=== PATIENT | male | born 1945 | race Caucasian/White ===

== ENCOUNTER 2016-12-05 10:46 | Outpatient (CLI) | payer MEDICARE, BC | END 2016-12-05 10:47 | disposition home or self-care (01) | LOC: DI 10:46 | PROVIDERS: ATTEND Family Medicine | DX: Z53.9 Procedure and treatment not carried out, unspecified reason (principal) ==

== ENCOUNTER 2016-12-10 11:45 | Outpatient (CLI) | payer MEDICARE, BC ==
--- NOTE | 2016-12-10 16:53 | CT Report ---
CT SINUSES WITHOUT CONTRAST: 12/10/2016 CLINICAL INDICATION: Rhinosinusitis, cough. Axial CT images of the paranasal sinuses were obtained without contrast, following which sagittal and coronal reconstructions were performed. In accordance with CT protocol optimization, one or more of the following dose reduction techniques w ere utilized for this exam: automated exposure control, adjustment of mA and/or KV based on patient size, or use of iterative reconstructive technique. There is mild mucosal thickening in the maxillary sinuses and frontal sinuses bilaterally, with patch y opacification of ethmoid air cells. The sphenoid sinus is clear. There is soft tissue occlusion o f the ostiomeatal units bilaterally. There is leftward spurring of the nasal septum, but the nasal s eptum is midline. No osseous destruction is seen. The visualized intraorbital contents are unremark able. IMPRESSION: CHRONIC FRONTAL, MAXILLARY, AND ETHMOID SINUS DISEASE. :9 JOB #: [id number] EXT JOB #:[id number]
== END 2016-12-10 11:46 | disposition home or self-care (01) ==
LOC: DI 11:45
PROVIDERS: ATTEND Family Medicine
DX: J32.1 Chronic frontal sinusitis (principal); J32.0 Chronic maxillary sinusitis; J32.2 Chronic ethmoidal sinusitis
CPT/HCPCS: 70486

== ENCOUNTER 2017-05-14 08:00 | Outpatient (CLI) | payer MEDICARE, BC ==
[2017-05-14 13:08] LABS: BASOPHILS % (AUTO) 0.7 %; EOSINOPHILS # (AUTO) 0.5 10^3/uL (0.0-0.7); EOSINOPHILS % (AUTO) 10.3 %; HCT - HEMATOCRIT 46.3 % (42.0-52.0); HGB - HEMOGLOBIN 15.8 g/dL (14.0-18.0); LYMPHOCYTES # (AUTO) 1.5 10^3/uL (1.5-3.5); LYMPHOCYTES % (AUTO) 29.2 %; MEAN CORPUSCULAR HEMOGLOBIN 31.3 pg (27.0-31.0); MEAN CORPUSCULAR HGB CONC 34.2 g/dL (32.0-36.0); MEAN CORPUSCULAR VOLUME 91.6 fL (80.0-94.0); MEAN PLATELET VOLUME 8.5 fL (7.4-11.4); MONOCYTES # (AUTO) 0.4 10^3/uL (0.0-1.0); NEUTROPHILS # (AUTO) 2.7 10^3/uL (1.5-6.6); NEUTROPHILS % (AUTO) 51.8 %; RED BLOOD COUNT 5.05 10^6/uL (4.70-6.10); RED CELL DISTRIBUTION WIDTH 13.6 % (12.0-15.0); UNCORRECTED WHITE BLOOD COUNT 5.1 x10^3/uL; WHITE BLOOD COUNT 5.1 x10^3/uL (4.8-10.8)
[2017-05-14 13:30] LABS: ALBUMIN/GLOBULIN RATIO 1.5 (1.0-2.2); BILIRUBIN,TOTAL 0.8 mg/dL (0.2-1.0); BUN - BLOOD UREA NITROGEN 19 mg/dL (6-20); CALCIUM 9.1 mg/dL (8.5-10.3); CARBON DIOXIDE - CO2 25 mmol/L (21-32); CHLORIDE 105 mmol/L (101-111); CHOLESTEROL 115 mg/dL; CREATININE 1.1 mg/dL (0.6-1.2); GFR - MDRD 66 (>89); GLUCOSE 99 mg/dL (70-100); HDL CHOLESTEROL 23 mg/dL; LDL/HDL RATIO 2.7 (<3.6); POTASSIUM 4.3 mmol/L (3.5-5.0); SODIUM 137 mmol/L (135-145); TOTAL PROTEIN 7.2 g/dL (6.7-8.2); TRIGLYCERIDES 152 mg/dL; VLDL CHOLESTEROL 30 mg/dL
== END 2017-05-14 08:01 | disposition home or self-care (01) ==
LOC: LAB.WCP 08:00
PROVIDERS: ATTEND Family Medicine
DX: I10 Essential (primary) hypertension (principal); N40.1 Benign prostatic hyperplasia with lower urinary tract symptoms; E78.5 Hyperlipidemia, unspecified; Z12.5 Encounter for screening for malignant neoplasm of prostate
CPT/HCPCS: 36415; 80053; 80061; 84443; 85025; G0103; 84153

== ENCOUNTER 2017-06-26 13:20 | Outpatient (CLI) | payer MEDICARE, BC ==
[2017-06-26] MEDS ORDERED: ALBUTEROL NEB 2.5 MG/3 ML INH ONE (14:00)
== END 2017-06-26 13:21 | disposition home or self-care (01) ==
LOC: RT 13:20
PROVIDERS: ATTEND Family Medicine
DX: J45.998 Other asthma (principal)
CPT/HCPCS: 94060; 94729; J7613

== ENCOUNTER 2017-11-24 08:00 | Outpatient (CLI) | payer MEDICARE, BC ==
[2017-11-24 19:00] LABS: PSA FREE 0.36 ng/mL (0.16-2.81)
[2017-11-24 19:01] LABS: PSA TOTAL 2.31 ng/mL (0.000-2.000)
== END 2017-11-24 08:01 ==
LOC: LAB.WCP 08:00
PROVIDERS: ATTEND Family Medicine
DX: R97.20 Elevated prostate specific antigen [PSA] (principal)
CPT/HCPCS: 36415; 84154

== ENCOUNTER 2018-06-09 12:47 | Emergency (ER) | payer MEDICARE, BC ==
[2018-06-09 13:29] LABS: BASOPHILS % (AUTO) 0.7 %; EOSINOPHILS # (AUTO) 0.4 10^3/uL (0.0-0.7); EOSINOPHILS % (AUTO) 9.7 %; LYMPHOCYTES % (AUTO) 21.1 %; MEAN CORPUSCULAR HEMOGLOBIN 31.2 pg (27.0-31.0); MEAN CORPUSCULAR HGB CONC 33.9 g/dL (32.0-36.0); MEAN PLATELET VOLUME 7.7 fL (7.4-11.4); MONOCYTES # (AUTO) 0.4 10^3/uL (0.0-1.0); MONOCYTES % (AUTO) 7.9 %; NEUTROPHILS # (AUTO) 2.8 10^3/uL (1.5-6.6); NEUTROPHILS % (AUTO) 60.6 %; PLT - PLATELET COUNT 189 10^3/uL (130-450); RED BLOOD COUNT 5.13 10^6/uL (4.70-6.10); RED CELL DISTRIBUTION WIDTH 13.5 % (12.0-15.0); WHITE BLOOD COUNT 4.6 x10^3/uL (4.8-10.8)
[2018-06-09] MEDS ORDERED: HYDROmorphone 1 MG/ML CARPUJECT IVP STA (13:38)
--- NOTE | 2018-06-09 13:45 | ED Physician Documentation ---
History of Present Illness - Stated complaint Stated Complaint: LOWER ABD PX - Chief complaint Chief Complaint: Abd Pain - History obtained from History obtained from: Patient, Family - History of Present Illness Timing: How many hours ago (3) Pain level max: 9 Pain level now: 9 - Additonal information Additional information: 73-year-old male who presents to the emergency department with right inguinal pain today. Noticed pain and swelling. Worse with palpation, better with rest and lying flat. Has never noticed a hernia before. No vomiting. No fevers. Review of Systems Constitutional: denies: Fever, Chills GI: denies: Vomiting Skin: denies: Rash Musculoskeletal: denies: Neck pain, Back pain Neurologic: denies: Headache PD PAST MEDICAL HISTORY - Past Medical History Past Medical History: Yes Cardiovascular: None Respiratory: Asthma Neuro: None Endocrine/Autoimmune: None GI: None : Kidney stones HEENT: None Psych: None Musculoskeletal: None Derm: None - Past Surgical History Past Surgical History: Yes Ortho: Shoulder arthroplasty, Other - Present Medications Home Medications: Ambulatory Orders Medication Instructions Recorded Confirmed Amox/Clav 875/125 [Augmentin 1 tab ORAL BID 06/09/18 06/09/18 875/125] Losartan [Cozaar] 1 tab ORAL DAILY 06/09/18 06/09/18 Prednisone 20 mg PO DAILY 06/09/18 06/09/18 Terazosin HCl 1 tab ORAL DAILY 06/09/18 06/09/18 - Allergies Allergies/Adverse Reactions: Allergies Allergy/AdvReac Type Severity Reaction Status Date / Time No Known Drug Allergies Allergy Verified 06/09/18 13:04 - Social History Does the pt smoke?: No Smoking Status: Never smoker Does the pt drink ETOH?: Yes ETOH Use: Wine, Beer, Liquor Does the pt have substance abuse?: No - Immunizations Immunizations are current?: Yes - POLST Patient has POLST: No PD ED PE NORMAL - Vitals Vital signs reviewed: Yes - General General: Alert and oriented X 3, No acute distress - HEENT HEENT: Moist mucous membranes - Neck Neck: Supple, no meningeal sign - Cardiac Cardiac: RRR - Respiratory Respiratory: No respiratory distress, Clear bilaterally - Abdomen Abdomen: Soft, Non tender, Non distended - Male Male : Other (R inguinal swelling and tenderness. NVI. no skin changes. ) - Derm Derm: Warm and dry - Extremities Extremities: No edema - Neuro Neuro: Alert and oriented X 3 Results - Vitals Vitals: Vital Signs - 24 hr 06/09/18 13:01 Temperature 36 C L Heart Rate 65 Respiratory 22 Rate Blood Pressure 179/83 H O2 Saturation 99 Oxygen O2 Source Room air - Labs Labs: Laboratory Tests 06/09/18 06/09/18 13:20 13:20 WBC 4.6 L RBC 5.13 Hgb 16.0 Hct 47.2 MCV 92.0 MCH 31.2 H MCHC 33.9 RDW 13.5 Plt Count 189 MPV 7.7 Neut # (Auto) 2.8 Lymph # (Auto) 1.0 L [place] # (Auto) 0.4 Eos # (Auto) 0.4 Baso # (Auto) 0.0 Absolute Nucleated RBC 0.00 Nucleated RBC % 0.0 Sodium 137 Potassium 4.2 Chloride 102 Carbon Dioxide 27 Anion Gap 8.0 BUN 20 Creatinine 1.2 Estimated GFR (MDRD) 60 L Glucose 139 H Calcium 9.3 Total Bilirubin 0.7 AST 23 ALT 26 Alkaline Phosphatase 143 H Total Protein 7.5 Albumin 4.4 Globulin 3.1 Albumin/Globulin Ratio 1.4 Lipase 24 PD MEDICAL DECISION MAKING - ED course Complexity details: reviewed results, re-evaluated patient, considered differential, d/w patient, d/w family ED course: 73-year-old male with a right inguinal hernia that was incarcerated upon presentation. Given a dose of Dilaudid, placed in reverse Trendelenburg and the hernia spontaneously reduced. Upon reevaluation there is no palpable mass or pain. He was also reevaluated with standing. We will have him follow-up with surgery for further evaluation and care. Patient and family counseled regarding signs and symptoms for which I believe and urgent re-evaluation would be necessary. Patient with good understanding of and agreement to plan and is comfortable going home at this time This document was made in part using voice recognition software. While efforts are made to proofread this document, sound alike and grammatical errors may occur. Departure - Departure Disposition: 01 Home, Self Care Clinical Impression: Inguinal hernia, right Condition: Good Instructions: ED Hernia Inguinal Follow-Up: Adan Fitzgerald MD [Primary Care Provider] - Naveed Ch MD [Provider Admit Priv/Credential] - Comments: Return if you worsen. You do have an inguinal hernia on able to be reduced today. Return if you cannot reduce it or if the pain worsens. You should follow-up with surgery to discuss if surgery is the right option for managing your hernia.
[2018-06-09 13:50] LABS: ALBUMIN 4.4 g/dL (3.2-5.5); ALBUMIN/GLOBULIN RATIO 1.4 (1.0-2.2); BILIRUBIN,TOTAL 0.7 mg/dL (0.2-1.0); CALCIUM 9.3 mg/dL (8.5-10.3); CREATININE 1.2 mg/dL (0.6-1.2); TOTAL PROTEIN 7.5 g/dL (6.7-8.2)
[2018-06-09 14:23] VITALS: BP 146/85
== END 2018-06-09 14:24 | disposition home or self-care (01) ==
LOC: ED 12:47
DX: K40.90 Unilateral inguinal hernia, without obstruction or gangrene, not specified as recurrent (principal)
CPT/HCPCS: 36415; 80053; 83690; 85025; 96374; 99283; J1170

== ENCOUNTER 2018-06-22 15:00 | Outpatient (CLI) | payer MEDICARE, BC | END 2018-06-22 15:01 | disposition critical access hospital (66) | LOC: EMS 15:00 | PROVIDERS: ATTEND Surgery | DX: R00.0 Tachycardia, unspecified (principal) | CPT/HCPCS: A0425; A0427 ==

== ENCOUNTER 2018-06-22 15:19 | Observation (INO) | payer MEDICARE, BC ==
--- NOTE | 2018-06-22 15:19 | ED Physician Documentation ---
PD HPI DYSPNEA - Stated complaint Stated Complaint: AFIB - History obtained from History obtained from: Patient - History of Present Illness Timing - onset: How many days ago (4-5) Timing - onset during: Light activity Timing - details: Gradual onset, Still present, Waxing and waning (The patient has had a feeling of lightheadedness and general weakness for the last for 5 days. It feels worse when he is up and around her with light activity. He denied any chest pain per se. He does complain of dyspnea with it but does have a history of some asthma, though not feeling wheezing. He went to his primary care today and was found to be in atrial fibrillation which is new onset for him. His heart rate was 130s-140s. He was referred to the ER for further evaluation and workup.) Associated symptoms: Fever Recently seen: Clinic (went to PMD today due to fatigue and dyspnea, and found to be in atrial fib with rate 130s. No history of such.) Review of Systems Constitutional: denies: Fever, Chills, Myalgias Nose: denies: Rhinorrhea / runny nose, Congestion Throat: denies: Sore throat Respiratory: reports: Dyspnea. denies: Cough GI: denies: Nausea, Vomiting, Diarrhea, Hematemesis, Bloody / black stool : denies: Dysuria, Frequency Neurologic: reports: Generalized weakness. denies: Focal weakness, Numbness, Near syncope PD PAST MEDICAL HISTORY - Past Medical History Cardiovascular: Hypertension Respiratory: None Neuro: None Endocrine/Autoimmune: None - Present Medications Home Medications: Ambulatory Orders Medication Instructions Recorded Confirmed Amox/Clav 875/125 [Augmentin 1 tab ORAL [id number] 06/09/18 06/22/18 875/125] Terazosin HCl 10 mg PO DAILY 06/09/18 06/22/18 Albuterol Sulfate [Proair Hfa 2 puffs INH Q4H PRN 06/22/18 06/22/18 Inhaler] Cetirizine HCl 10 mg PO DAILY PRN 06/22/18 06/22/18 Doxylamine Succinate [[place]] 25 mg PO QPM PRN 06/22/18 06/22/18 Fluticasone Propionate 2 sprays RMOERO DAILY PRN 06/22/18 06/22/18 Fluticasone/Salmeterol [Advair 1 puffs INH BID 06/22/18 06/22/18 250-50 Diskus] Aspirin [Aspirin EC] 162 mg PO DAILY #60 tablet. 06/23/18 Metoprolol Succinate [Toprol Xl] 25 mg PO BID #60 tablet 06/23/18 - Allergies Allergies/Adverse Reactions: Allergies Allergy/AdvReac Type Severity Reaction Status Date / Time No Known Drug Allergies Allergy Verified 06/22/18 15:28 - Family History Family history: reports: Non contributory - Immunizations Immunizations are current?: Yes PD ED PE NORMAL - Vitals Vital signs reviewed: Yes - General General: Alert and oriented X 3, No acute distress, Well developed/nourished - HEENT HEENT: Ears normal, Pharynx benign - Neck Neck: Supple, no meningeal sign, No adenopathy - Cardiac Cardiac: No murmur, No rub. No: RRR - Respiratory Respiratory: Clear bilaterally - Abdomen Abdomen: Soft, Non tender Results - Vitals Vitals: Oxygen O2 Source Room air - EKG (time done) 15:26 Rate: Rate (enter#) (111) Rhythm: Atrial fibrillation [place]: Normal QRS: Normal Ischemia: Normal ST segments. No: ST elevation c/w ischemia, ST depression - Labs Labs: Laboratory Tests 06/22/18 06/22/18 06/22/18 15:30 15:39 15:39 WBC 5.5 RBC 5.28 Hgb 16.2 Hct 49.6 MCV 93.9 MCH 30.8 MCHC 32.8 RDW 13.9 Plt Count 168 MPV 7.6 Neut # (Auto) 3.6 Lymph # (Auto) 1.2 L [place] # (Auto) 0.5 Eos # (Auto) 0.2 Baso # (Auto) 0.0 Absolute Nucleated RBC 0.00 Nucleated RBC % 0.0 Sodium 135 Potassium 4.5 Chloride 104 Carbon Dioxide 26 Anion Gap 5.0 L BUN 24 H Creatinine 1.1 Estimated GFR (MDRD) 66 L Glucose 116 H Calcium 8.4 L Magnesium Total Bilirubin 0.5 AST 20 ALT 25 Alkaline Phosphatase 111 Troponin I B-Natriuretic Peptide Total Protein 6.9 Albumin 3.9 Globulin 3.0 Albumin/Globulin Ratio 1.3 Lipase 30 Ethyl Alcohol < 5.0 06/22/18 06/22/18 06/22/18 15:39 15:39 15:39 WBC RBC Hgb Hct MCV MCH MCHC RDW Plt Count MPV Neut # (Auto) Lymph # (Auto) [place] # (Auto) Eos # (Auto) Baso # (Auto) Absolute Nucleated RBC Nucleated RBC % Sodium Potassium Chloride Carbon Dioxide Anion Gap BUN Creatinine Estimated GFR (MDRD) Glucose Calcium Magnesium 2.6 Total Bilirubin AST ALT Alkaline Phosphatase Troponin I < 0.04 B-Natriuretic Peptide 18 Total Protein Albumin Globulin Albumin/Globulin Ratio Lipase Ethyl Alcohol - Rads (name of study) chest xray Radiology: Prelim report reviewed, EMP read contemporaneously (no acute process), See rad report PD MEDICAL DECISION MAKING - ED course Complexity details: re-evaluated patient (Heart rate control was achieved with 2 doses of metoprolol. His heart rate is now 80-90. Blood pressure still good at 120s systolic. He is feeling better. He does need further evaluation for structural heart disease however and I will talk with the hospitalist regarding further evaluation in the hospital. His troponin and BNP as well as electrolytes are good.), considered differential (The patient has atrial fibrillation with fast heart rate. He is symptomatic with lightheadedness and some dyspnea. We will control the rate with some beta-blockers. 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
[2018-06-22 15:44] LABS: BASOPHILS % (AUTO) 0.7 %; EOSINOPHILS # (AUTO) 0.2 10^3/uL (0.0-0.7); EOSINOPHILS % (AUTO) 2.8 %; HGB - HEMOGLOBIN 16.2 g/dL (14.0-18.0); LYMPHOCYTES # (AUTO) 1.2 10^3/uL (1.5-3.5); LYMPHOCYTES % (AUTO) 22.3 %; MEAN CORPUSCULAR HEMOGLOBIN 30.8 pg (27.0-31.0); MEAN CORPUSCULAR HGB CONC 32.8 g/dL (32.0-36.0); MEAN CORPUSCULAR VOLUME 93.9 fL (80.0-94.0); MEAN PLATELET VOLUME 7.6 fL (7.4-11.4); MONOCYTES # (AUTO) 0.5 10^3/uL (0.0-1.0); MONOCYTES % (AUTO) 8.6 %; NEUTROPHILS # (AUTO) 3.6 10^3/uL (1.5-6.6); NEUTROPHILS % (AUTO) 65.6 %; PLT - PLATELET COUNT 168 10^3/uL (130-450); RED BLOOD COUNT 5.28 10^6/uL (4.70-6.10); RED CELL DISTRIBUTION WIDTH 13.9 % (12.0-15.0); WHITE BLOOD COUNT 5.5 x10^3/uL (4.8-10.8)
[2018-06-22 15:56] LABS: ALBUMIN 3.9 g/dL (3.2-5.5); ALBUMIN/GLOBULIN RATIO 1.3 (1.0-2.2); BILIRUBIN,TOTAL 0.5 mg/dL (0.2-1.0); CALCIUM 8.4 mg/dL (8.5-10.3); CREATININE 1.1 mg/dL (0.6-1.2); TOTAL PROTEIN 6.9 g/dL (6.7-8.2)
[2018-06-22] MEDS ORDERED: METOPROLOL 5 MG/5 ML VIAL IVP STA ×2 (16:02→17:00)
[2018-06-22] MEDS ORDERED: SODIUM CHLORIDE 0.9% 500 ML IV ONE (16:02)
--- NOTE | 2018-06-22 16:09 | XRAY Report ---
Reason: dizziness Procedure Date: 06/22/2018 Accession Number: [id number] / [id number] Procedure: XR - Chest 1 View X-Ray CPT Code: 32194 FULL RESULT: EXAM: CHEST RADIOGRAPHY EXAM DATE: 06/22/2018 03:56 PM. CLINICAL HISTORY: Dizziness. COMPARISON: CHEST 2 VIEW PA/LAT 12/02/2016 3:58 PM. TECHNIQUE: 1 view. FINDINGS: Cardiac leads overlie the chest. Heart size is normal. Small calcified plaques in the thoracic aorta. Lung volumes are low. No consolidation, pleural effusion, or pneumothorax visualized. IMPRESSION: Low lung volumes. Otherwise no acute cardiopulmonary findings. RADIA
[2018-06-22] MEDS ORDERED: METOPROLOL TARTRATE 50 MG TABLET PO STA (17:48)
[2018-06-22] MEDS ORDERED: SODIUM CHLORIDE FLUSH 0.9% 10 ML SYRINGE IVP PRN (18:09)
[2018-06-22] MEDS ORDERED: ACETAMINOPHEN 325 MG TABLET PO PRN (18:09)
[2018-06-22] MEDS ORDERED: TEMAZEPAM 15 MG CAPSULE PO PRN (18:09)
[2018-06-22 18:59] LABS: MUDS CUTOFF CONCENTRATIONS CUTOFF CONC BELOW:
[2018-06-22] MEDS ORDERED: ENOXAPARIN 40 MG/0.4 ML SYRINGE SUBQ SCH (19:00)
[2018-06-22] MEDS ORDERED: LEVALBUTEROL 1.25 MG/3 ML NEB INH PRN (19:00)
[2018-06-22] MEDS ORDERED: ASPIRIN EC 81 MG TABLET PO SCH (19:00)
[2018-06-22 19:17] LABS: AMPHETAMINE SCREEN,URINE NEGATIVE (NEGATIVE); BENZODIAZEPINES SCREEN, URINE NEGATIVE (NEGATIVE); COCAINE SCREEN URINE NEGATIVE (NEGATIVE); METHADONE SCREEN, URINE NEGATIVE (NEGATIVE); METHAMPHETAMINES SCREEN, URINE NEGATIVE (NEGATIVE); OPIATE SCREEN, URINE NEGATIVE (NEGATIVE); OXYCODONE SCREEN, URINE NEGATIVE (NEGATIVE); PROPOXYPHENE SCREEN, URINE NEGATIVE (NEGATIVE); TRICYCLIC ANTIDEPRESSANT,URINE NEGATIVE (NEGATIVE)
[2018-06-22] MEDS: DEXTROSE 5%-0.9% NACL 1,000 ML IV SCH (19:43)
--- NOTE | 2018-06-22 19:56 | HISTORY & PHYSICAL EXAMINATION ---
DATE OF SERVICE: 06/22/2018 Physician: Genny Altman MD HISTORY OF PRESENT ILLNESS: This is a 73-year-old white male with a history of hypertension, BPH, sinusitis requiring 2 recent courses of antibiotics and recently diagnosed asthma, who went to his doctor after 5 days of feeling weak and lightheaded. Once while walking on the beach he was extremely lightheaded, without vertigo or ataxia. Once, walking up a hill, he felt too weak to go on. At his PCP's office, he was found to be in atrial fibrillation of new onset with rapid rate and sent to the emergency room. His heart rate was in the 130s to 140s in the emergency room. Blood pressure was 120. He received two doses of Lopressor 5 mg IV and heart rate is improved into the 90 range, but blood pressure dropped into the 100-120 systolic range. He denies any chest pain, has no past cardiac history. He does not think that his shortness of breath is like his asthma feelings of wheezing and shortness of breath. He has never had this sensation before. There has been no syncope. There have been no albaro palpitations of racing. There was a recent change in his BP med from Valsartan to Losartan, and he is finishing 1 more week of Augmentin for sinusitis (which caused post-nasal drip and a cough) and was on a steroid taper that just finished 3 days ago, this was managed by a specialist. There has been no ever or chills. The noticed that he has been very fatigued for a week. He denies overusing the Beta-agonist inhaler recently. He denies binging alcohol. ALLERGIES: NONE. MEDICATIONS 1. Cetirizine 10 mg p.r.n. allergies. 2. Albuterol inhaler q.4-h p.r.n. wheezing. 3. Advair inhaler 1 puff b.i.d. scheduled. 4. Fluticasone nasal spray p.r.n. allergies. 5. Terazosin 10 mg daily. 6. Losartan 50 mg daily. 7. Augmentin, 1 more week of a 20-day course. FAMILY HISTORY: No inherited diseases. SOCIAL HISTORY: He is a nonsmoker who never smoked, drinks 1-3 tequila drinks approximately 3 times a week. 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 He lives with his . They have adopted children but no natural children. REVIEW OF SYSTEMS: A comprehensive review of systems was performed and pertinent positives are above; the rest are negative. PHYSICAL EXAMINATION VITAL SIGNS: Blood pressure 120/90, heart rate 95 in atrial fibrillation, room air saturation 96%, afebrile. HEENT: Unremarkable. NECK: Without JVD. No carotid bruits. CHEST: Clear. No wheezing. Good air entry. HEART: Sounds are irregular. No murmurs. No RV heave. ABDOMEN: Soft, obese. Normal bowel sounds. No organomegaly. EXTREMITIES: No clubbing, cyanosis, or edema. NEUROLOGIC: Word-finding difficulty, during this visit, otherwise grossly intact. LABORATORIES: Normal electrolytes. BUN is 24, creatinine 1.1, calcium 8.4, magnesium 2.6, troponin not detectable x1. Normal liver tests and lipase. Normal CBC. No INR was done. BNP normal at 18. Chest x-ray: unremarkable except low lung volumes. EKG: Atrial fibrillation with a rate of 120, early RS transition, and no ischemic ST or T-wave changes, and there is no old EKG available for comparison. IMPRESSION 1. New onset of atrial fibrillation with rapid ventricular response. 2. Weakness and lightheadedness. 3. Shortness of breath. 4. History of recently diagnosed asthma, on inhalers but no overuse. 5. History of benign prostatic hypertrophy, on medications. 6. History of hypertension, but currently borderline hypotension. PLAN 1. Place the patient in Observation status on telemetry. 2. Stop his Losartan in order for medications for rate control to be used, since blood pressure is already borderline low. 3. Start with oral beta blockers for rate control. 4. Obtain troponins x3 and check a TSH to rule out hyperthyroidism. 5. Check a drug screen and blood alcohol level. 6. Obtain an Echo to rule out structural heart disease. 7. Start an aspirin daily today, but decision regarding anticoagulation vs antiplatelet treatment will be based on his LVEF by Echo. Currently, his CHADS score is 1 (hypertension only), therefore possibly daily aspirin alone will be enough for prophylaxis from stroke in a-fib. If he has heart failure on his Echo or old stroke by head CT, then his score would increase to 2, and then he would qualify for anticoagulation. 8. Continue with his inhalers, but not albuterol, but Xopenex in order to prevent further heart rate rise. 9. Begin gentle hydration because of the borderline blood pressure. 10. Obtain a head CT to rule out CVA as the cause of weakness while walking and word-finding difficulty. Deep venous thrombosis prophylaxis: Lovenox ((pharmacological). CODE STATUS: FULL CODE. ATTESTATION: The patient is expected to be discharged or transferred to another facility within 96 hours: YES. cc: Adan Fitzgerald MD TD: 06/22/2018 18:50 MTDD
--- NOTE | 2018-06-22 20:11 | CT Report ---
Reason: Word finding difficulty, new Afib Procedure Date: 06/22/2018 Accession Number: [id number] / [id number] Procedure: CT - Head W/O Stroke Protocol CPT Code: FULL RESULT: EXAM: CT HEAD EXAM DATE: 06/22/2018 07:56 PM. CLINICAL HISTORY: Word finding difficulty, new Afib. COMPARISON: SINUSES 12/10/2016 12:25 PM. TECHNIQUE: Multiaxial CT images were obtained from the foramen magnum to the vertex. Reformats: Sagittal and coronal. IV contrast: None. In accordance with CT protocol optimization, one or more of the following dose reduction techniques were utilized for this exam: automated exposure control, adjustment of mA and/or KV based on patient size, or use of iterative reconstructive technique. FINDINGS: Parenchyma: No intraparenchymal hemorrhage. No evidence of mass, midline shift, or CT findings of acute infarction. Valentine-white differentiation is distinct. Diffuse chronic microangiopathic white matter changes. Extraaxial Spaces: Normal for age. No subdural or epidural collections. Ventricles: The ventricles and cortical sulci are enlarged, consistent with age-related tissue loss. Sinuses and orbits: Imaged paranasal sinuses, orbits, and mastoids show no significant abnormality. Bones: Unremarkable. Other: None. IMPRESSION: Generalized age-related cortical atrophic changes without evidence of acute intracranial abnormality. RADIA The call report notification system was initiated by Dr. Wilder Mitchell at 20:05 hrs on 06/22/18. The above findings were discussed with Dr. Bond by Dr. Wilder Mitchell at 20:09 hrs on 06/22/18.
[2018-06-22] MEDS: METOPROLOL SUCCINATE 25 MG TABLET PO SCH (22:15)
[2018-06-22] MEDS: AMOX/CLAV 875 MG/125 MG TABLET PO SCH (22:15)
[2018-06-22] MEDS: FAMOTIDINE 20 MG TABLET PO SCH (22:15)
[2018-06-22] MEDS: FLUTICASONE INH SCH (23:30)
[2018-06-22] MEDS: SALMETEROL INH SCH (23:30)
[2018-06-23] MEDS: SODIUM CHLORIDE FLUSH 0.9% 10 ML SYRINGE IVP SCH ×2 (00:33→09:09)
[2018-06-23] MEDS: DEXTROSE 5%-0.9% NACL 1,000 ML IV SCH (05:16)
[2018-06-23 05:53] LABS: BUN - BLOOD UREA NITROGEN 21 mg/dL (6-20); CALCIUM 8.3 mg/dL (8.5-10.3); CARBON DIOXIDE - CO2 24 mmol/L (21-32); CHLORIDE 107 mmol/L (101-111); CHOL/HDL RATIO 6.5 (<5.0); CHOLESTEROL 110 mg/dL; CREATININE 1.1 mg/dL (0.6-1.2); GFR - MDRD 66 (>89); GLUCOSE 108 mg/dL (70-100); HDL CHOLESTEROL 17 mg/dL; LDL CHOLESTEROL,CALCULATED 71 mg/dL; LDL/HDL RATIO 4.2 (<3.6); SODIUM 138 mmol/L (135-145); VLDL CHOLESTEROL 22 mg/dL
[2018-06-23] MEDS ORDERED: POLYETHYLENE GLYCOL 3350 17 GM PACKET PO SCH (09:00)
[2018-06-23] MEDS ORDERED: TERAZOSIN 5 MG CAPSULE PO SCH (09:00)
--- NOTE | 2018-06-23 09:01 | Discharge Plan ---
Discharge Plan Disposition: 01 Home, Self Care Condition: Stable Prescriptions: Aspirin [Aspirin EC] 162 mg PO DAILY #60 tablet. Metoprolol Succinate [Toprol Xl] 25 mg PO BID #60 tablet Diet: Low Sodium Activity Restrictions: Activity as Tolerated Shower Restrictions: No Driving Restrictions: No Instruction Topics: Stroke Prevent Live W Atrial Fib, Atrial Fibrillation Additional Instructions or Follow Up instructions: You were here in Observation status, to evaluate weakness/dizziness and newly diagnosed Atrial fibrillation (Afib). The findings are: you were mildly dehydrated and your heart rate was rapid in Afib, which may have caused the weakness and dizziness. In addition, the Terazosin can add to blood pressure drop and cause dizziness. While here, you received iv hydration and medications were adjusted for heart rate control. The cause of the Afib is presumably from your asthma and any sleep apnea (this is suggested by findings on your cardiac Echo that show right-heart stretch). You will now need a [facility] for further management of the Afib. You are being discharged on new medications. Please STOP taking the Losartan and take the new Toprol XL (Metoprolol Succinate) and take 2 baby aspirin daily. The other medications you were on may be continued. See your PCP in the next 7-10 days in follow-up and for referral to a [facility]. If you have new or worsening symptoms, come to the ER. No Smoking: If you smoke, Please STOP! Call for help. Follow-up with: Adan Fitzgerald MD [Primary Care Provider] -
[2018-06-23] MEDS: AMOX/CLAV 875 MG/125 MG TABLET PO SCH (09:04)
[2018-06-23] MEDS: METOPROLOL SUCCINATE 25 MG TABLET PO SCH (09:05)
[2018-06-23] MEDS: FAMOTIDINE 20 MG TABLET PO SCH (09:05)
[2018-06-23] MEDS: SALMETEROL INH SCH (09:08)
[2018-06-23] MEDS: FLUTICASONE INH SCH (09:08)
[2018-06-23 16:12] VITALS: BP 120/81
--- NOTE | 2018-06-23 19:49 | DISCHARGE SUMMARY ---
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 Patient presented with a 1-week history of lightheadedness without vertigo or ataxia, always during upright position or walking, not associated with syncope. He went to his PCP and was found to be in atrial fibrillation and was sent to the emergency room. His heart rate was in the 130s and 140s, and he was placed in Observation for evaluation and management of new onset of atrial fibrillation. HOSPITAL COURSE AND DISCHARGE DIAGNOSES 1. New onset of atrial fibrillation, with rapid ventricular response. Patient was given IV Lopressor 5 mg x2 in the emergency room and started on oral Toprol- XL 25 mg b.i.d. With this, his heart rate was controlled into the 80s-90s, and even with activity remained 90-95. He had several blood pressure checks to assure he had no orthostasis, which were normal. He was started on aspirin for stroke prophylaxis (162 mg daily) since his CHADS score was 1 (Hypertension). He underwent troponins that were negative, TSH was normal ruling out hyperthyroidism, an Echo showed normal LV size and low normal LVEF of 50-55%, right ventricle enlarged, normal PA pressure. It was suspected that his atrial fibrillation was caused by his asthma, recent exacerbations of sinusitis, causing a cough, and having underlying sleep apnea. He was advised to have further evaluation and management of the Afib by a Professional Programmer Analyst, which would likely include stress testing to evaluate the low normal LVEF and be offered options such as electrical or chemical cardioversion. 2. Weakness and lightheadedness. Patient had mild dehydration, as evidenced by his BUN and creatinine on admission, which were 24 and 1.1. He received gentle hydration, and these improved to 21 and 1.1. There were no orthostatic changes on his next day. Possibly his Terazosin was adding to complaints of lightheadedness as well as the recent outpatient change of Valsartan to Losartan. The Losartan was discontinued while here and at the time of discharge in order to use beta blockers for rate control. He underwent a CT scan of the head to rule out a stroke as cause of these complaints of lightheadedness, and this showed no acute stroke or hemorrhage, but microangiopathic changes of aging were seen. He had cholesterol testing done, therefore, which were normal, showing a total cholesterol of 110, LDL of 71, and triglycerides of 112. 3. Dyspnea. Although this was reported in the emergency room, he denied having any true recent shortness of breath. If there were episodes of shortness of breath, they could have been related to the atrial fibrillation with rapid ventricular response, the mild RV dilation, or the borderline low normal LVEF. 4. History of recently diagnosed asthma. Patient is on a scheduled inhaler and another p.r.n. inhaler, but denied overuse which may have been a cause for his atrial fibrillation. He currently had no wheezing or any chest x-ray findings of hyperinflation. 5. History of sleep apnea. Patient used a CPAP device while here. Please consider having this rechecked for proper settings in order to minimize any cor pulmonale. 6. History of benign prostatic hypertrophy. The patient's Terazosin was continued while here and was not stopped at discharge. 7. History of hypertension. His medications for BP control were adjusted; see above. ALLERGIES: NONE. MEDICATIONS AT TIME OF DISCHARGE 1. ProAir inhaler 2 puffs q.4-h p.r.n. 2. Augmentin 1 tablet b.i.d. for an additional 1 week (to complete the sinusitis treatment). 3. Cetirizine 10 mg daily p.r.n. allergic symptoms. 4. Fluticasone nasal spray p.r.n. allergic symptoms. 5. Advair inhaler 1 puff b.i.d. 6. Terazosin 10 mg p.o. daily. 7. Aspirin 81 mg 2 tablets p.o. daily (new) 8. Toprol-XL 25 mg p.o. b.i.d. (new) LABS AND IMAGING: Reviewed and summarized above. CONDITION AT DISCHARGE: Stable. PHYSICAL EXAMINATION VITAL SIGNS: Blood pressure 120/81, heart rate 74 to 94 in atrial fibrillation, afebrile, room air saturation 97%. HEENT: Unremarkable. NECK: Without JVD or carotid bruits. CHEST: Clear. No wheezing or rales. HEART: Sounds irregular. No audible murmurs. No RV heave. ABDOMEN: Soft, obese, nontender. No organomegaly. EXTREMITIES: No clubbing, cyanosis, or edema. NEUROLOGIC: Grossly intact. FOLLOWUP: He was advised to see his PCP within the next week and to have referral to a Professional Programmer Analyst for further evaluation and management of the atrial fibrillation. CODE STATUS: FULL CODE. Time required to complete this entire discharge, patient education, chart review, and dictation: 40 minutes. cc: Adan Fitzgerald MD TD: 06/23/2018 19:16 MTDD
== END 2018-06-23 17:00 | disposition home or self-care (01) ==
LOC: EDUNIT# → ED 15:19 → MS2 18:09
PROVIDERS: ADMIT Internal Medicine; ATTEND Internal Medicine
DX: I48.91 Unspecified atrial fibrillation (principal); I10 Essential (primary) hypertension; E86.0 Dehydration; G47.30 Sleep apnea, unspecified; J32.8 Other chronic sinusitis; J45.909 Unspecified asthma, uncomplicated; N40.0 Benign prostatic hyperplasia without lower urinary tract symptoms; Z79.51 Long term (current) use of inhaled steroids; Z79.2 Long term (current) use of antibiotics
CPT/HCPCS: 36415; 70450; 71045; 80048; 80053; 80061; 83690; 83735; 83880; 84443; 84484; 85025; 93005; 93306; 96361; 96372; 96374; 99284; A9270; G0378; J1650; 80306; 80320; 83721

== ENCOUNTER 2018-10-24 09:59 | Outpatient (CLI) | payer MEDICARE, BC ==
[2018-10-24 12:32] LABS: ALBUMIN 4.3 g/dL (3.2-5.5); ALBUMIN/GLOBULIN RATIO 1.5 (1.0-2.2); BILIRUBIN,TOTAL 0.7 mg/dL (0.2-1.0); CALCIUM 9.3 mg/dL (8.5-10.3); CREATININE 1.1 mg/dL (0.6-1.2); TOTAL PROTEIN 7.1 g/dL (6.7-8.2)
[2018-10-24 12:35] LABS: BASOPHILS # (AUTO) 0.1 10^3/uL (0.0-0.1); BASOPHILS % (AUTO) 2.2 %; EOSINOPHILS # (AUTO) 0.2 10^3/uL (0.0-0.7); HGB - HEMOGLOBIN 16.1 g/dL (14.0-18.0); LYMPHOCYTES # (AUTO) 1.6 10^3/uL (1.5-3.5); LYMPHOCYTES % (AUTO) 32.6 %; MEAN CORPUSCULAR HEMOGLOBIN 30.9 pg (27.0-31.0); MEAN CORPUSCULAR HGB CONC 33.3 g/dL (32.0-36.0); MEAN CORPUSCULAR VOLUME 92.6 fL (80.0-94.0); MEAN PLATELET VOLUME 8.3 fL (7.4-11.4); MONOCYTES # (AUTO) 0.4 10^3/uL (0.0-1.0); MONOCYTES % (AUTO) 8.3 %; NEUTROPHILS # (AUTO) 2.6 10^3/uL (1.5-6.6); NEUTROPHILS % (AUTO) 52.9 %; PLT - PLATELET COUNT 187 10^3/uL (130-450); RED BLOOD COUNT 5.21 10^6/uL (4.70-6.10); RED CELL DISTRIBUTION WIDTH 13.8 % (12.0-15.0); WHITE BLOOD COUNT 4.9 x10^3/uL (4.8-10.8)
== END 2018-10-24 10:00 | disposition home or self-care (01) ==
LOC: LAB.WCP 09:59
PROVIDERS: ATTEND Internal Medicine Gastroenterology
DX: I10 Essential (primary) hypertension (principal); R10.31 Right lower quadrant pain
CPT/HCPCS: 36415; 80053; 85025

== ENCOUNTER 2018-11-01 09:43 | Outpatient (CLI) | payer MEDICARE, BC ==
[2018-11-01] MEDS ORDERED: IOVERSOL 320 50 ML VIAL ONE (09:58)
[2018-11-01] MEDS ORDERED: IOVERSOL 320 100 ML VIAL IVP ONE ×2 (09:58→11:40)
[2018-11-01] MEDS ORDERED: IOVERSOL 320 50 ML VIAL PO ONE (11:40)
--- NOTE | 2018-11-01 12:42 | CT Report ---
Reason: GROIN PAIN,RIGHT Procedure Date: 11/01/2018 Accession Number: [id number] / [id number] Procedure: CT - Abdomen/Pelvis W CPT Code: FULL RESULT: EXAM: CT ABDOMEN AND PELVIS EXAM DATE: 11/01/2018 11:16 AM. CLINICAL HISTORY: GROIN PAIN,RIGHT. COMPARISONS: None. TECHNIQUE: Routine helical CT imaging was performed through the abdomen and pelvis. IV contrast: ISOVUE 300 100mL. Enteric contrast: No. Reconstructions: Coronal and sagittal. In accordance with CT protocol optimization, one or more of the following dose reduction techniques were utilized for this exam: automated exposure control, adjustment of mA and/or KV based on patient size, or use of iterative reconstructive technique. FINDINGS: Right inguinal hernia with non-incarcerated small bowel loop and appendix. Lung Bases: Fatty infiltrated Liver: Normal. No masses. Gallbladder/Bile Ducts: Unremarkable. Spleen: Normal. Pancreas: Normal. Adrenal Glands: Normal. Kidneys: Right kidney unremarkable. Left kidney 1 cm cyst Peritoneal Cavity/Bowel: Diverticulosis No free fluid, free air or adenopathy. No masses or acute inflammatory process. The appendix is well visualized and normal. Pelvic Organs: Normal. The bladder and visualized pelvic organs are within normal limits. Vasculature: No aneurysms or other significant abnormality. Bones: Bone island right ilium. DJD spine. Other: None. IMPRESSION: Right inguinal hernia with non-incarcerated small bowel loop and appendix RADIA
== END 2018-11-01 09:44 | disposition home or self-care (01) ==
LOC: DI 09:43
PROVIDERS: ATTEND Internal Medicine Gastroenterology
DX: K40.90 Unilateral inguinal hernia, without obstruction or gangrene, not specified as recurrent (principal)
CPT/HCPCS: 74177; Q9967

== ENCOUNTER 2018-12-12 09:09 | Day surgery (SDC) | payer MEDICARE, BC ==
--- NOTE | 2018-12-12 07:51 | ANESTHESIA ---
Pre-Anesthesia VS, & Labs - Diagnosis R inguinal hernia - Procedure R inguinal hernia repair w/mesh Height 5 ft 8 in Body Mass Index 30.4 - NPO >8 hours Last Fluid Intake: sips w/metoprolol - Lab Results Lab results reviewed: Yes Home Medications and Allergies Home Medications: Ambulatory Orders Tamsulosin HCl [Flomax] 0.4 mg PO DAILY 11/16/18 Albuterol Sulfate [Proair Hfa Inhaler] 2 puffs INH Q4H PRN 06/22/18 Cetirizine HCl 10 mg PO DAILY PRN 06/22/18 Doxylamine Succinate [[employer]] 25 mg PO QPM PRN 06/22/18 Fluticasone Propionate 2 sprays ROMERO DAILY PRN 06/22/18 Tamsulosin HCl [Flomax] 0.4 mg PO DAILY 11/16/18 Allergies/Adverse Reactions: Allergies Allergy/AdvReac Type Severity Reaction Status Date / Time No Known Drug Allergies Allergy Verified 12/12/18 09:37 Anes History & Medical History - Anesthetic History Anesthesia Complications: reports: No previous complications Family history of Anesthesia Complications: Denies Family history of Malignant Hyperthermia: Denies - Medical History Cardiovascular: reports: Hypertension, Atrial fibrillation Pulmonary: reports: Asthma (well controlled), Sleep apnea, CPAP use Gastrointestinal: reports: None Urinary: reports: Benign prostate hypertrophy, Kidney stones Neuro: reports: None Musculoskeletal: reports: None Endocrine/Autoimmune: reports: None Blood Disorders: reports: None Skin: reports: None Smoking Status: Never smoker - Surgical History Eyes Ears Nose Throat (EENT): Tonsil/Adenoidectomy Cardiothoracic: Other Orthopedic: ACL reconstruction, Shoulder arthroplasty Exam General: Alert, Oriented x3, Cooperative Dental: WNL Mouth Openin Fingerbreadth Neck Mobility: Normal Mallampati classification: II Thyromental Distance: 4-6 cm Respiratory: Lungs clear, Normal breath sounds Cardiovascular: Regular rate Neurological: Normal speech Mental/Cognitive Status: Alert/Oriented X3, Normal for patient Cognitive Status: Within normal limits Plan Anesthesia Type: General (backup), MAC Consent for Procedure(s) Verified and Reviewed: Yes Code Status: Attempt Resuscitation ASA classification: 3-Severe systemic disease Is this case an emergency?: No
[~2018-12-12 09:09] MED LIST: BUPIVACAINE 0.5%-EPI 1:200000 PF 30 ML VIAL ONE; LIDOCAINE 1% 50 ML MDV ONE; ceFAZolin 1 GM VIAL ONE
[2018-12-12] MEDS ORDERED: CEFAZOLIN SODIUM IN 0.9 % NACL 2 GM/100 ML BAG IV ONE ×2 (09:21→10:40)
[2018-12-12] MEDS ORDERED: LACTATED RINGERS 1,000 ML IV ONE (09:37)
[2018-12-12] MEDS ORDERED: LIDOCAINE 1% 50 ML MDV SUBQ ONE ×2 (10:08)
[2018-12-12] MEDS ORDERED: BUPIVACAINE 0.5%-EPI 1:200000 PF 30 ML VIAL SUBQ ONE ×2 (10:08)
[2018-12-12] MEDS ORDERED: MIDAZOLAM 2 MG/2 ML VIAL IVP ONE (10:40)
[2018-12-12] MEDS ORDERED: PROPOFOL 200 MG/20 ML VIAL IVP ONE (10:40)
[2018-12-12] MEDS ORDERED: fentaNYL 100 MCG/2 ML VIAL IVP ONE (10:40)
[2018-12-12] MEDS ORDERED: LIDOCAINE-MPF 2% 5 ML VIAL IM ONE (10:40)
[2018-12-12] MEDS ORDERED: KETOROLAC 30 MG/ML VIAL IVP ONE (10:40)
[2018-12-12] MEDS ORDERED: ONDANSETRON 4 MG/2 ML VIAL IVP ONE (10:40)
[2018-12-12] MEDS ORDERED: IBUPROFEN 600 MG TABLET PO PRN (11:19)
[2018-12-12] MEDS ORDERED: ACETAMINOPHEN 325 MG TABLET PO PRN (11:19)
[2018-12-12] MEDS ORDERED: oxyCODONE 5 MG TABLET PO PRN (11:19)
[2018-12-12] MEDS ORDERED: ONDANSETRON 4 MG/2 ML VIAL IVP PRN (11:19)
[2018-12-12] MEDS ORDERED: oxyCODONE 5 MG TABLET ONE (12:30)
[2018-12-12 13:01] VITALS: BP 168/75
--- NOTE | 2018-12-12 14:11 | OPERATIVE REPORT ---
DATE OF SERVICE: 12/12/2018 Physician: Donnell Mcguire MD PREOPERATIVE DIAGNOSIS: Symptomatic right inguinal hernia. POSTOPERATIVE DIAGNOSES: 1. Symptomatic right inguinal hernia. 2. Cord lipoma. PROCEDURES PERFORMED: 1. Open repair of right inguinal hernia with polypropylene mesh. 2. Resection of right spermatic cord lipoma. SURGEON: Donnell Mcguire MD ANESTHESIA: Local plus general LMA by Dr. Mcmahon. ESTIMATED BLOOD LOSS: 10 mL COMPLICATIONS: None. FINDINGS: A small indirect right inguinal hernia was identified along with a large, 7 cm in greatest dimension, cord lipoma. There was no evidence of direct or femoral hernia. INDICATIONS: The patient is a 73-year-old gentleman with recent onset of severe right groin pain, which upon evaluation was ultimately found to be due to a symptomatic right inguinal hernia. He was advised to undergo elective repair. TECHNIQUE: After informed consent, the patient was taken to the operating room where he was placed under monitored anesthesia care, subsequently converted to general LMA by Dr. Mcmahon. Preoperative preparation included application of sequential calf compression boots and administration of 2 grams cefazolin intravenously within an hour of the incision. His right groin which had been marked and clipped in the ASU was prepared with iodoform solution, following which a right groin block was instituted using 30 mL of a 50:50 combination of 1% lidocaine plain and 0.5% Marcaine with epinephrine. The patient's right groin was then re-prepared with ChloraPrep solution and draped in the usual sterile fashion. Transverse incision was made in the skin lines of the right groin, beginning just above the pubic tubercle and extending laterally approximately 5 cm. Hemostasis achieved with electrocautery and 2-0 Vicryl ties. Incision was carried down through the subcutaneous tissues until the external oblique aponeurosis was identified, which was then opened along the lines of its fibers in such a manner as to open the external ring and expose the internal ring. A search for the ilioinguinal nerve was made, but was not identified within the inguinal canal. The spermatic cord was mobilized and encircled with a [place] drain. The spermatic cord was carefully dissected isolating a 7 cm in greatest dimension cord lipoma, which was dissected free from surrounding cord structures to the level of the internal ring, where it was ligated with 2-0 Vicryl ties, amputated and discarded. Continued dissection of the spermatic cord revealed a small indirect hernia sac, which was also dissected free from surrounding cord structures to the level of the internal ring where it was then opened and a finger inserted in the peritoneal cavity to search for direct and femoral hernias made and none was identified. The hernia sac was twisted and then doubly suture ligated with 3-0 silk suture ligatures. Excess hernia sac was amputated and discarded. After hemostasis was assured and the inguinal canal fully exposed, the wound was irrigated with antibiotic solution containing 1 gram of cefazolin per liter. A [employer] slotted precut polypropylene mesh patch was then placed over the inguinal floor after soaking in the antibiotic solution. It was secured in place circumferentially with continuous 3-0 Prolene sutures, securing it to the shelving edge of Poupart's ligament inferiorly to the internal oblique aponeurosis laterally and superiorly and to the lateral border rectus sheath medially. Care was taken to avoid excessive tightening of the mesh around the cord at the level of the internal ring. After hemostasis was assured, the wound was irrigated with antibiotic solution once again, following which wound closure was accomplished in layers using continuous 2-0 Vicryl, reapproximated external oblique aponeurosis overlying the cord, followed by 3-0 Vicryl for Dax's fascia and 4-0 Monocryl subcuticular skin closure, followed by Dermabond. Anesthesia was terminated and patient was transferred to the recovery room in satisfactory condition. Instrument counts were correct x2 and no drains were used. TD: 12/12/2018 13:19 BEHZAD
== END 2018-12-12 09:10 | disposition home or self-care (01) ==
LOC: SDS 09:09
PROVIDERS: ATTEND Internal Medicine Gastroenterology
PROC: 0VBF0ZZ Excision of Right Spermatic Cord, Open Approach (ICD-10-PCS; 2018-12-12)
PROC: 0YU50JZ Supplement Right Inguinal Region with Synthetic Substitute, Open Approach (ICD-10-PCS; principal; 2018-12-12 10:15)
DX: K40.90 Unilateral inguinal hernia, without obstruction or gangrene, not specified as recurrent (principal); D17.6 Benign lipomatous neoplasm of spermatic cord; I10 Essential (primary) hypertension; I48.91 Unspecified atrial fibrillation; J45.909 Unspecified asthma, uncomplicated; Z79.51 Long term (current) use of inhaled steroids; G47.30 Sleep apnea, unspecified; N40.0 Benign prostatic hyperplasia without lower urinary tract symptoms; E66.9 Obesity, unspecified; E78.00 Pure hypercholesterolemia, unspecified; Z68.30 Body mass index [BMI] 30.0-30.9, adult
CPT/HCPCS: 49505; A9270; C1781; J0690; J7120

== ENCOUNTER 2020-06-04 11:13 | Outpatient (CLI) | payer MEDICARE, BC ==
[2020-06-04 18:26] LABS: BASOPHILS % (AUTO) 0.8 %; EOSINOPHILS # (AUTO) 0.3 10^3/uL (0.0-0.7); EOSINOPHILS % (AUTO) 5.7 %; HGB - HEMOGLOBIN 16.7 g/dL (14.0-18.0); LYMPHOCYTES # (AUTO) 1.7 10^3/uL (1.5-3.5); MEAN CORPUSCULAR HEMOGLOBIN 30.8 pg (27.0-31.0); MEAN CORPUSCULAR HGB CONC 31.8 g/dL (32.0-36.0); MEAN CORPUSCULAR VOLUME 96.7 fL (80.0-94.0); MEAN PLATELET VOLUME 10.2 fL (7.4-11.4); MONOCYTES # (AUTO) 0.4 10^3/uL (0.0-1.0); NEUTROPHILS # (AUTO) 2.8 10^3/uL (1.5-6.6); NEUTROPHILS % (AUTO) 53.1 %; PLT - PLATELET COUNT 172 10^3/uL (130-450); RED BLOOD COUNT 5.43 10^6/uL (4.70-6.10); RED CELL DISTRIBUTION WIDTH 13.5 % (12.0-15.0); WHITE BLOOD COUNT 5.3 x10^3/uL (4.8-10.8)
[2020-06-04 19:07] LABS: ALBUMIN 4.3 g/dL (3.2-5.5); ALBUMIN/GLOBULIN RATIO 1.4 (1.0-2.2); ALKALINE PHOSPHATASE 107 IU/L (42-121); ALT ALANINE AMINOTRANSFERASE 32 IU/L (10-60); AST ASPARTATE AMINOTRANSFERASE 22 IU/L (10-42); BILIRUBIN,TOTAL 0.8 mg/dL (0.2-1.0); BUN - BLOOD UREA NITROGEN 21 mg/dL (6-20); CALCIUM 9.6 mg/dL (8.5-10.3); CARBON DIOXIDE - CO2 25 mmol/L (21-32); CHLORIDE 106 mmol/L (101-111); CHOL/HDL RATIO 5.8 (<5.0); CHOLESTEROL 128 mg/dL; CREATININE 1.2 mg/dL (0.6-1.2); GLUCOSE 96 mg/dL (70-100); HDL CHOLESTEROL 22 mg/dL; LDL CHOLESTEROL,CALCULATED 74 mg/dL; LDL/HDL RATIO 3.4 (<3.6); SODIUM 142 mmol/L (135-145); TOTAL PROTEIN 7.3 g/dL (6.7-8.2); VLDL CHOLESTEROL 32 mg/dL
== END 2020-06-04 11:14 | disposition home or self-care (01) ==
LOC: LAB.N 11:13
PROVIDERS: ATTEND Internal Medicine
DX: I48.91 Unspecified atrial fibrillation (principal); I10 Essential (primary) hypertension; E78.5 Hyperlipidemia, unspecified; J45.909 Unspecified asthma, uncomplicated; N40.1 Benign prostatic hyperplasia with lower urinary tract symptoms
CPT/HCPCS: 36415; 80053; 80061; 84443; 85025; G0103; 83721; 84153

== ENCOUNTER 2021-06-09 08:00 | Outpatient (CLI) | payer MEDICARE, BC ==
[2021-06-09 20:16] LABS: BASOPHILS % (AUTO) 0.9 %; EOSINOPHILS # (AUTO) 0.4 10^3/uL (0.0-0.7); EOSINOPHILS % (AUTO) 8.5 %; HCT - HEMATOCRIT 52.5 % (42.0-52.0); LYMPHOCYTES % (AUTO) 42.7 %; MEAN CORPUSCULAR HEMOGLOBIN 30.9 pg (27.0-31.0); MEAN CORPUSCULAR HGB CONC 32.4 g/dL (32.0-36.0); MEAN CORPUSCULAR VOLUME 95.3 fL (80.0-94.0); MEAN PLATELET VOLUME 10.4 fL (7.4-11.4); MONOCYTES # (AUTO) 0.4 10^3/uL (0.0-1.0); MONOCYTES % (AUTO) 8.8 %; NEUTROPHILS # (AUTO) 1.8 10^3/uL (1.5-6.6); NEUTROPHILS % (AUTO) 38.7 %; PLT - PLATELET COUNT 180 10^3/uL (130-450); RED BLOOD COUNT 5.51 10^6/uL (4.70-6.10); RED CELL DISTRIBUTION WIDTH 13.3 % (12.0-15.0); WHITE BLOOD COUNT 4.6 x10^3/uL (4.8-10.8)
[2021-06-09 20:30] LABS: ALBUMIN 4.2 g/dL (3.2-5.5); ALBUMIN/GLOBULIN RATIO 1.4 (1.0-2.2); ALKALINE PHOSPHATASE 82 IU/L (42-121); ALT ALANINE AMINOTRANSFERASE 23 IU/L (10-60); AST ASPARTATE AMINOTRANSFERASE 19 IU/L (10-42); BILIRUBIN,TOTAL 0.9 mg/dL (0.2-1.0); BUN - BLOOD UREA NITROGEN 17 mg/dL (6-20); CALCIUM 9.5 mg/dL (8.5-10.3); CARBON DIOXIDE - CO2 26 mmol/L (21-32); CHLORIDE 104 mmol/L (101-111); CHOL/HDL RATIO 6.3 (<5.0); CHOLESTEROL 125 mg/dL; CREATININE 1.2 mg/dL (0.6-1.2); GFR - MDRD 59 (>89); GLUCOSE 101 mg/dL (70-100); HDL CHOLESTEROL 20 mg/dL; LDL CHOLESTEROL,CALCULATED 67 mg/dL; LDL/HDL RATIO 3.4 (<3.6); POTASSIUM 4.5 mmol/L (3.5-5.0); SODIUM 140 mmol/L (135-145); TOTAL PROTEIN 7.2 g/dL (6.7-8.2); TRIGLYCERIDES 190 mg/dL; VLDL CHOLESTEROL 38 mg/dL
[2021-06-09 20:50] LABS: THYROID STIMULATING HORMONE 3.14 uIU/mL (0.34-5.60)
== END 2021-06-09 23:59 | disposition home or self-care (01) ==
LOC: LAB.WCP 08:00
PROVIDERS: ATTEND Internal Medicine
DX: I10 Essential (primary) hypertension (principal); N40.1 Benign prostatic hyperplasia with lower urinary tract symptoms; I48.91 Unspecified atrial fibrillation
CPT/HCPCS: 36415; 80053; 80061; 83721; 84153; 84443; 85025

== ENCOUNTER 2021-07-10 08:07 | Day surgery (SDC) | payer MEDICARE, BC ==
[2021-07-10] MEDS ORDERED: LACTATED RINGERS 1,000 ML IV ONE ×2 (08:45→11:26)
--- NOTE | 2021-07-10 09:00 | ANESTHESIA ---
Pre-Anesthesia VS, & Labs - Diagnosis screening - Procedure colonoscopy Vital Signs: Temp Pulse Resp BP Pulse Ox 36.1 C L 64 16 180/90 H 97 07/10/21 08:28 07/10/21 08:28 07/10/21 08:28 07/10/21 08:28 07/10/21 08:28 Height: 5 ft 7 in Weight (kg): 93 kg Body Mass Index: 32.1 BMI Classification: Obese - NPO >8 hours Home Medications and Allergies Albuterol Sulfate [Proair Hfa Inhaler] 2 puffs INH Q4H PRN 06/22/18 Fluticasone Propionate 2 sprays ROMERO DAILY PRN 06/22/18 Tamsulosin HCl [Flomax] 0.4 mg PO DAILY 11/16/18 Apixaban [Eliquis] 5 mg PO DAILY 12/12/18 Allergies/Adverse Reactions: Allergies Allergy/AdvReac Type Severity Reaction Status Date / Time No Known Drug Allergies Allergy Verified 12/12/18 09:37 Anes History & Medical History - Anesthetic History Anesthesia Complications: reports: No previous complications - Medical History Cardiovascular: reports: Hypertension, Atrial fibrillation Pulmonary: reports: Asthma, Sleep apnea Gastrointestinal: reports: Chronic constipation Urinary: reports: None Neuro: reports: None Musculoskeletal: reports: None Endocrine/Autoimmune: reports: None Blood Disorders: reports: None Skin: reports: Psoriasis Smoking Status: Never smoker - Surgical History General: reports: Other Eyes Ears Nose Throat (EENT): reports: Tonsil/Adenoidectomy Cardiothoracic: reports: Other Orthopedic: reports: Knee replacement Exam General: Alert, Oriented x3 Dental: WNL Mouth Opening: Greater than 4 Fingerbreadths Mallampati classification: II Thyromental Distance: greater than 6 cm Respiratory: Lungs clear Cardiovascular: Regular rate Plan Anesthesia Type: Total IV Consent for Procedure(s) Verified and Reviewed: Yes Code Status: Attempt Resuscitation ASA classification: 2-Mild systemic disease Is this case an emergency?: No
[2021-07-10] MEDS ORDERED: MIDAZOLAM 2 MG/2 ML VIAL ONE (10:48)
[2021-07-10] MEDS ORDERED: PROPOFOL 500 MG/50 ML 500 MG/50 ML VIAL ONE (10:53)
--- NOTE | 2021-07-10 11:30 | OPERATIVE REPORT ---
Operative Report - General Procedure Date: 07/10/21 Planned Procedure: colonoscopy Pre-Op Diagnosis: colon cancer screening Procedure Performed: colonoscopy with cold forcep biopsy Post Op Diagnosis: possible polyp ascending colon removed with cold forceps - Procedure Note Primary Surgeon: yaya rainey Anesthesia Technique: MAC Pathology: ascending colon biopsy Estimated Blood Loss (mL): 0 Indications: screening for colon cancer Findings: poor prep. small polyps may have been missed. no cancer Complications: none - Other Other Information/Narrative: Normal digital rectal exam. Normal retroflexion exam. The green colonoscope was slowly advanced to the cecum. Cecum was identified and confirmed by presence of the appendix and the ileocecal valve. [employer] computer system was down and pictures were not taken. Prep was poor and small 2 to 3 mm polyps may have been missed. A possible 3 mm polyp ascending colon was removed with cold forceps. Colonoscopy otherwise was normal. He tolerated the procedure well.
[2021-07-10 11:54] VITALS: BP 130/70
--- NOTE | 2021-07-10 14:25 | ANESTHESIA POST OP EVALUATION ---
Anesthesia Post Eval - Post Anesthesia Eval Vitals: Last Vital Signs Temp 36.3 C L 07/10/21 11:25 Pulse 54 L 07/10/21 11:52 Resp 12 07/10/21 11:52 BP 130/70 07/10/21 11:52 Pulse Ox 96 07/10/21 11:52 CV Function Including HR & BP: Stable Pain Control: Satisfactory Nausea & Vomiting: Negative Mental Status: Baseline Respiratory Status: Airway Patent Hydration Status: Satisfactory Anesthesia Complications: None
== END 2021-07-10 08:08 | disposition home or self-care (01) ==
LOC: SDS 08:07
PROVIDERS: ATTEND Surgery
PROC: 0DBK8ZZ Excision of Ascending Colon, Via Natural or Artificial Opening Endoscopic (ICD-10-PCS; principal; 2021-07-10 09:30)
DX: Z12.11 Encounter for screening for malignant neoplasm of colon (principal); D12.2 Benign neoplasm of ascending colon; E66.9 Obesity, unspecified; Z68.32 Body mass index [BMI] 32.0-32.9, adult; G47.33 Obstructive sleep apnea (adult) (pediatric); I48.91 Unspecified atrial fibrillation
CPT/HCPCS: 45380; J7120

== ENCOUNTER 2021-09-17 08:00 | Outpatient (CLI) | payer MEDICARE, BC ==
--- NOTE | 2021-09-18 08:32 | XRAY Report ---
PROCEDURE: Ankle 3 View RT INDICATIONS: R ANKLE PX TECHNIQUE: 3 views of the ankle were acquired. COMPARISON: None FINDINGS: Bones: No fractures or dislocations. Well-corticated ossifications are seen over the medial malleol us consistent with remote injury. No acute fracture. Ankle mortise is normally aligned. No suspiciou s bony lesions. Soft tissues: No tibiotalar joint effusion. Achilles tendon appears normal. IMPRESSION: No acute fracture. Reviewed by: Jorge Morales on 09/18/2021 8:30 AM PDT Approved by: Jorge Morales on 09/18/2021 8:30 AM PDT Station ID: [id number]
== END 2021-09-17 23:59 | disposition home or self-care (01) ==
LOC: DI.N 08:00
PROVIDERS: ATTEND Family Medicine
DX: M25.571 Pain in right ankle and joints of right foot (principal)

== ENCOUNTER 2022-11-16 09:05 | Outpatient (CLI) | payer MEDICARE, BC ==
[2022-11-16 12:07] LABS: BASOPHILS % (AUTO) 0.6 %; EOSINOPHILS # (AUTO) 0.3 10^3/uL (0.0-0.7); EOSINOPHILS % (AUTO) 7.1 %; HCT - HEMATOCRIT 47.2 % (42.0-52.0); HGB - HEMOGLOBIN 15.4 g/dL (14.0-18.0); LYMPHOCYTES # (AUTO) 1.8 10^3/uL (1.5-3.5); LYMPHOCYTES % (AUTO) 37.2 %; MEAN CORPUSCULAR HEMOGLOBIN 30.1 pg (27.0-31.0); MEAN CORPUSCULAR HGB CONC 32.6 g/dL (32.0-36.0); MEAN CORPUSCULAR VOLUME 92.4 fL (80.0-94.0); MEAN PLATELET VOLUME 10.2 fL (7.4-11.4); MONOCYTES # (AUTO) 0.4 10^3/uL (0.0-1.0); MONOCYTES % (AUTO) 9.2 %; NEUTROPHILS # (AUTO) 2.2 10^3/uL (1.5-6.6); NEUTROPHILS % (AUTO) 45.5 %; PLT - PLATELET COUNT 191 10^3/uL (130-450); RED BLOOD COUNT 5.11 10^6/uL (4.70-6.10); RED CELL DISTRIBUTION WIDTH 13.2 % (12.0-15.0); WHITE BLOOD COUNT 4.8 x10^3/uL (4.8-10.8)
[2022-11-16 12:49] LABS: THYROID STIMULATING HORMONE 1.67 uIU/mL (0.34-5.60)
[2022-11-16 13:16] LABS: ALBUMIN 3.9 g/dL (3.2-5.5); ALBUMIN/GLOBULIN RATIO 1.2 (1.0-2.2); ALKALINE PHOSPHATASE 85 IU/L (42-121); ALT ALANINE AMINOTRANSFERASE 20 IU/L (10-60); AST ASPARTATE AMINOTRANSFERASE 19 IU/L (10-42); BILIRUBIN,TOTAL 0.9 mg/dL (0.2-1.0); BUN - BLOOD UREA NITROGEN 24 mg/dL (6-20); CALCIUM 9.3 mg/dL (8.5-10.3); CARBON DIOXIDE - CO2 27 mmol/L (21-32); CHLORIDE 107 mmol/L (101-111); CHOL/HDL RATIO 5.7 (<5.0); CHOLESTEROL 126 mg/dL; CREATININE 1.2 mg/dL (0.6-1.2); GFR - MDRD 59 (>89); GLUCOSE 102 mg/dL (70-100); HDL CHOLESTEROL 22 mg/dL; LDL CHOLESTEROL,CALCULATED 86 mg/dL; LDL/HDL RATIO 3.9 (<3.6); POTASSIUM 4.4 mmol/L (3.5-5.0); SODIUM 139 mmol/L (135-145); TOTAL PROTEIN 7.2 g/dL (6.7-8.2); TRIGLYCERIDES 88 mg/dL; VLDL CHOLESTEROL 18 mg/dL
== END 2022-11-16 09:06 | disposition home or self-care (01) ==
LOC: LAB.N 09:05
PROVIDERS: ATTEND Internal Medicine
DX: I10 Essential (primary) hypertension (principal); E78.5 Hyperlipidemia, unspecified; N40.1 Benign prostatic hyperplasia with lower urinary tract symptoms; I48.0 Paroxysmal atrial fibrillation
CPT/HCPCS: 36415; 80053; 80061; 83721; 84153; 84443; 85025

== ENCOUNTER 2023-04-16 15:18 | Emergency (ER) | payer MEDICARE, BC ==
--- NOTE | 2023-04-16 15:37 | ED Physician Documentation ---
PD HPI ABD PAIN - Stated complaint Stated Complaint: STOMACH PX,HIGH BP - Chief complaint Chief Complaint: Cardiac - History obtained from History obtained from: Patient - History of Present Illness Timing - onset: Last night (The patient had onset of lower mid to left abdominal pain last evening a couple of hours after dinner. His ate the same foods without any symptoms. Pain persisted overnight into this morning and has decreased but not resolved.) Timing - duration: Hours (18) Timing - details: Gradual onset, Still present (has decreased significantly to just mild pain now. Has stayed in same area.) Quality: Cramping, Aching, Pain Location: Suprapubic, LLQ Radiation: No: Lower back, Left flank Worsened by: Position (lying to left side.). No: Moving, Palpation Associated symptoms: Constipation. No: Fever, Nausea, Vomiting, Diarrhea, Dysuria Similar symptoms before: Has not had sx before Recently seen: Clinic (went to walk in clinic and referred to ED for timely testing.) Review of Systems Constitutional: denies: Fever, Chills Cardiac: denies: Chest pain / pressure, Palpitations Respiratory: denies: Dyspnea, Cough GI: reports: Abdominal Pain, Constipation. denies: Nausea, Vomiting, Diarrhea, Bloody / black stool : denies: Dysuria Musculoskeletal: denies: Back pain PD PAST MEDICAL HISTORY - Past Medical History Cardiovascular: Hypertension, Atrial fibrillation (episode in the past, not regularly.) Respiratory: Asthma, Sleep apnea Neuro: None Endocrine/Autoimmune: None GI: Chronic constipation : None HEENT: Chronic sinusitis Psych: None Musculoskeletal: None Derm: Psoriasis - Past Surgical History Past Surgical History: Yes General: Other Ortho: Knee replacement Cardiovascular: Other HEENT: Tonsil/Adenoidectomy - Present Medications Home Medications: Ambulatory Orders Medication Instructions Recorded Confirmed Fluticasone Propionate 2 sprays ROMERO DAILY PRN 06/22/18 04/16/23 Metoprolol Succinate [Toprol Xl] 25 mg PO BID #60 tablet 06/23/18 04/16/23 Tamsulosin HCl [Flomax] 0.4 mg PO DAILY 11/16/18 04/16/23 Apixaban [Eliquis] 5 mg PO DAILY 12/12/18 04/16/23 - Allergies Allergies/Adverse Reactions: Allergies Allergy/AdvReac Type Severity Reaction Status Date / Time No Known Drug Allergies Allergy Verified 12/12/18 09:37 - Social History Does the pt smoke?: No Smoking Status: Never smoker Does the pt drink ETOH?: Yes Does the pt have substance abuse?: No - Immunizations Immunizations are current?: Yes - POLST Patient has POLST: No PD ED PE NORMAL - Vitals Vital signs reviewed: Yes - General General: Alert and oriented X 3, No acute distress, Well developed/nourished - Cardiac Cardiac: RRR, No murmur - Respiratory Respiratory: Clear bilaterally - Abdomen Abdomen: Normal bowel sounds, Soft, Non distended, No organomegaly, Other (mild tender without guarding nor percussion tenderness LLQ and suprpapubic. Soft small umbilical hernia, not tender. No inguinal nodes/hernia. ) - Male Male : Deferred - Rectal Rectal: Deferred - Back Back: No CVA TTP - Derm Derm: Normal color, Warm and dry Results - Vitals Vitals: Vital Signs - 24 hr 04/16/23 04/16/23 04/16/23 15:24 17:27 18:59 Temperature 36.7 C 36.8 C 36.8 C Heart Rate 82 88 86 Respiratory 20 16 16 Rate Blood Pressure 175/79 H 140/74 H 136/70 H O2 Saturation 99 96 98 Oxygen O2 Source Room air - Labs Labs: Laboratory Tests 04/16/23 04/16/23 04/16/23 16:00 16:08 16:08 WBC 7.2 RBC 5.64 Hgb 16.7 Hct 52.5 H MCV 93.1 MCH 29.6 MCHC 31.8 L RDW 13.1 Plt Count 216 MPV 9.5 Neut # (Auto) 6.5 Lymph # (Auto) 0.4 L Jewell # (Auto) 0.3 Eos # (Auto) 0.0 Baso # (Auto) 0.0 Absolute Nucleated RBC 0.00 Nucleated RBC % 0.0 Sodium 136 Potassium 4.3 Chloride 102 Carbon Dioxide 27 Anion Gap 7.0 BUN 21 H Creatinine 1.1 Estimated GFR (MDRD) 65 L Glucose 141 H Calcium 9.4 Total Bilirubin 0.7 AST 11 ALT 13 Alkaline Phosphatase 113 Total Protein 7.4 Albumin 4.4 Globulin 3.0 Albumin/Globulin Ratio 1.5 Lipase 11 Urine Color YELLOW Urine Clarity CLEAR Urine pH 5.5 Ur Specific Pingree >=1.030 H Urine Protein NEGATIVE Urine Glucose (UA) NEGATIVE Urine Ketones NEGATIVE Urine Occult Blood SMALL H Urine Nitrite NEGATIVE Urine Bilirubin NEGATIVE Urine Urobilinogen 0.2 (NORMAL) Ur Leukocyte Esterase NEGATIVE Urine RBC 0-5 Urine WBC 0-3 Ur Squamous Epith Cells RARE Squamous Urine Bacteria Rare Urine Mucus Moderate Strands Ur Microscopic Review INDICATED Urine Culture Comments NOT INDICATED - Rads (name of study) abd/pelvic CT Relevant Findings:: Prelim report reviewed, EMP independent interpretation of test (some bowel wall thickening and nondilated bowel loops, some dilated stomach, c/w enterocolitis. No acute otherwise. ) PD Medical Decision Making - ED course Complexity details: reviewed results (UA without infection. CBC showing normal white count. ), considered differential (onset pain last evening that persisted overnight into now, with lessening of it today. Still present and unmoved from LLQ. consider stone, divertic, aortic, colitis, among others. ), d/w patient Reviewed Lab Results: The patient and his brought a copy of the EKG brought from the urgent care. They provider there reportedly had a concern with that. To my review of it appears a normal sinus rhythm with a slightly delayed R wave progression. No Q waves. No acute ischemic changes. I do not see anything significant in there. He was not having any chest pain or dyspnea. His blood pressure was slightly elevated today but approximately 160-170/75-80. This sounds more reactive to the situation and I would not necessarily act upon it. He was having abdominal pain that has tapered off and was mild now. Awaiting the CT report still but no significant findings noted to my view of the scan. There may be some element of constipation in the sigmoid and rectal area causing some of the pain. He can use the MiraLAX at home that he has. Otherwise his pain is improved now which is Toradol. He appears well. Abdomen is nontender at this point. Assuming a normal reading on the CT or just some mild wall edema/colitis, you should be able to be discharged home with instructions for simple bland diet and good fluids. He can use anti-inflammatory such as ibuprofen or naproxen for pain. To use his docusate and MiraLAX at home regarding constipation. ED course: The patient had lower abdominal pain last night more intense and then it improved overnight to moderate to mild now. It is still localized to the left lower abdomen. No back pain. He states he is mildly constipated chronically and uses docusate as needed and MiraLAX at times. No history of diverticulitis. He has had previous kidney stones. He states the current pain does not feel like kidney stones. He and his had eaten similar and she is feeling okay. His white count is normal. Urine does not show any signs of infection. Basic chemistry panel was normal reviewed by me as was the blood count. CT scan was ordered to evaluate for potential causes such as vascular or diverticular or colitis or kidney stone etc. The CT scan is evaluated by me with some look of wall thickening in the lower colon. Some mild degree of constipation in the sigmoid and rectal area. No obstruction pattern. Awaiting the radiology report. Reevaluation of the patient as he does not have any pain nor tenderness at this time with just some IV fluids and Toradol. Presume the patient will be discharged unless other abnormal findings on the radiologist report. Awaiting the final report before discharge. He is to drink lots of fluids. Continue with some anti-inflammatory such as ibuprofen or naproxen. He can continue with his docusate and I suggest using it daily instead of as needed and to add on the MiraLAX when needed but to use it more than just once in. He can use it every 2 or 3 hours through the day until he has a looser bowel movement. Departure - Departure Disposition: 01 Home, Self Care Clinical Impression: Lower abdominal pain, Enterocolitis Condition: Stable Record reviewed to determine appropriate education?: Yes Instructions: ED Abdominal Pain Unkn Cause Male Follow-Up: Isaac Quintero MD [Primary Care Provider] - Within 1 week Comments: Your blood pressure was a bit elevated today but that seems likely situational related to missing your medicine dose earlier as well as having the abdominal pain and poor sleeping overnight. It was not elevated enough to be needing intervention or such. It should resume to more normal levels once you are feeling well. Your EKG done at the walk-in clinic is essentially normal without any concerning findings. The delayed R wave progression is a relatively normal and common finding. Your urine test here as well as your white cell count/blood count and chemistry panel including electrolytes and kidney function are normal. No signs of urinary tract infection. Your CT scan did show a possible enterocolitis, which may cause pain and diarrhea, but resolves on its own most of the time.. There is some element of stool enlargement in the rectum and sigmoid colon and so that may represent some cramping pain in that area. Use a combination of your docusate and MiraLAX at home. I would suggest using the docusate regularly daily over the next week or 2 anyway. It can be a fairly regular daily or every other day ongoing as well. To that you can add the MiraLAX dose daily or twice a day or if you are particularly constipated, you can use it every 2 or 3 hours through the day until you start having some soft stools. Try not to overuse it to get diarrhea per se. Other considerations for stomach pain to last night and today could have been a food intolerance or just some irritation of the colon. Use medication such as ibuprofen or naproxen if needed for the pains. Recheck if recurring or other problems develop over the next few days. COMPARISON: CT abdomen/pelvis 11/01/2018 FINDINGS: Image quality: Excellent. Lung bases and heart: Posterior dependent atelectasis. Coronary artery calcifications. Liver: No solid mass. Gallbladder and biliary tree: No radiopaque stones or wall thickening. No biliary dilation. Spleen: No splenomegaly. Pancreas: No pancreatic ductal dilation. Adrenals: No adrenal nodule. Kidneys and ureters: No hydronephrosis. No renal cystic lesion which requires follow up. No solid mass. Bowel and peritoneum: Multiple diverticula are seen in the colon without focal pericolonic fat stranding to suggest acute diverticulitis. There is moderate colonic stool. Bowel thickening at the hepatic flexure may be secondary to underdistention or a mild colitis. No significant fluid. Small bowel are seen throughout the lower abdomen. Normal appendix. No signs of bowel obstruction. Lymph nodes: No central or retroperitoneal adenopathy. Mild nonspecific hazy mesenteric edema surrounding the midportion of the SMA. Vessels: No infrarenal aortic aneurysm. PELVIS Reproductive organs: Mild prostatomegaly. Bladder: No abnormal wall thickening, accounting for underdistension. Pelvic lymph nodes: No pelvic adenopathy by size criteria. Bones: No aggressive osseous abnormality. Other: No significant ventral or inguinal hernia. IMPRESSION: 1.Intermediate length segment of bowel wall thickening in the ascending/transverse colon at the hepatic flexure and nondilated fluid-filled loops of small bowel in the abdomen are suspicious for a nonspecific enterocolitis. 2.Colonic diverticulosis without signs of acute diverticulitis. Moderate distal colonic stool. Forms: PCP List Discharge Date/Time: 04/16/23 18:59
[2023-04-16] MEDS ORDERED: KETOROLAC 15 MG/ML VIAL IVP STA (15:56)
[2023-04-16 16:23] LABS: BILIRUBIN,URINE NEGATIVE (NEGATIVE); GLUCOSE, URINE (UA) NEGATIVE (NEGATIVE); KETONES,URINE (UA) NEGATIVE (NEGATIVE); LEUKOCYTE ESTERASE, URINE NEGATIVE (NEGATIVE); NITRITE,URINE NEGATIVE (NEGATIVE); OCCULT BLOOD,URINE SMALL (NEGATIVE); PH,URINE 5.5 PH (5.0-7.5); PROTEIN,URINE NEGATIVE (NEGATIVE); UROBILINOGEN,URINE 0.2 (NORMAL) E.U./dL (NORMAL)
[2023-04-16 16:28] LABS: BASOPHILS % (AUTO) 0.3 %; EOSINOPHILS % (AUTO) 0.3 %; HCT - HEMATOCRIT 52.5 % (42.0-52.0); HGB - HEMOGLOBIN 16.7 g/dL (14.0-18.0); LYMPHOCYTES # (AUTO) 0.4 10^3/uL (1.5-3.5); LYMPHOCYTES % (AUTO) 5.1 %; MEAN CORPUSCULAR HEMOGLOBIN 29.6 pg (27.0-31.0); MEAN CORPUSCULAR HGB CONC 31.8 g/dL (32.0-36.0); MEAN CORPUSCULAR VOLUME 93.1 fL (80.0-94.0); MEAN PLATELET VOLUME 9.5 fL (7.4-11.4); MONOCYTES # (AUTO) 0.3 10^3/uL (0.0-1.0); MONOCYTES % (AUTO) 3.6 %; NEUTROPHILS # (AUTO) 6.5 10^3/uL (1.5-6.6); NEUTROPHILS % (AUTO) 90.4 %; PLT - PLATELET COUNT 216 10^3/uL (130-450); RED BLOOD COUNT 5.64 10^6/uL (4.70-6.10); RED CELL DISTRIBUTION WIDTH 13.1 % (12.0-15.0); WHITE BLOOD COUNT 7.2 x10^3/uL (4.8-10.8)
[2023-04-16 16:33] LABS: CLARITY,URINE CLEAR (CLEAR)
[2023-04-16 16:48] LABS: ALBUMIN 4.4 g/dL (3.2-5.5); ALBUMIN/GLOBULIN RATIO 1.5 (1.0-2.2); BILIRUBIN,TOTAL 0.7 mg/dL (0.2-1.0); CALCIUM 9.4 mg/dL (8.5-10.3); CREATININE 1.1 mg/dL (0.6-1.3); POTASSIUM 4.3 mmol/L (3.5-4.5); TOTAL PROTEIN 7.4 g/dL (6.4-8.9)
[2023-04-16 16:53] LABS: BACTERIA,URINE Rare /HPF (None Seen); MUCUS,URINE Moderate Strands; RBC,URINE 0-5 /HPF (0-5); SQUAMOUS EPITHELIAL CELL,UR RARE Squamous (<= Few); WBC,URINE 0-3 /HPF (0-3)
[2023-04-16] MEDS ORDERED: iohexoL-300 100 ML VIAL IVP ONE (18:02)
--- NOTE | 2023-04-16 18:46 | CT Report ---
PROCEDURE: ABDOMEN/PELVIS W INDICATIONS: LLQ Abdominal pain, diverticulitis suspected CONTRAST: 100ml omni 300 TECHNIQUE: After the administration of intravenous contrast, 5 mm thick sections acquired from the diaphragms to the symphysis. 5 mm thick coronal and sagittal reformats were acquired. For radiation dose reducti on, the following was used: automated exposure control, adjustment of mA and/or kV according to yvette ent size. COMPARISON: CT abdomen/pelvis 11/01/2018 FINDINGS: Image quality: Excellent. Lung bases and heart: Posterior dependent atelectasis. Coronary artery calcifications. Liver: No solid mass. Gallbladder and biliary tree: No radiopaque stones or wall thickening. No biliary dilation. Spleen: No splenomegaly. Pancreas: No pancreatic ductal dilation. Adrenals: No adrenal nodule. Kidneys and ureters: No hydronephrosis. No renal cystic lesion which requires follow up. No solid mas s. Bowel and peritoneum: Multiple diverticula are seen in the colon without focal pericolonic fat strand ing to suggest acute diverticulitis. There is moderate colonic stool. Bowel thickening at the hepatic flexure may be secondary to underdistention or a mild colitis. No significant fluid. Small bowel are seen throughout the lower abdomen. Normal appendix. No signs of bowel obstruction. Lymph nodes: No central or retroperitoneal adenopathy. Mild nonspecific hazy mesenteric edema surroun ding the midportion of the SMA. Vessels: No infrarenal aortic aneurysm. PELVIS Reproductive organs: Mild prostatomegaly. Bladder: No abnormal wall thickening, accounting for underdistension. Pelvic lymph nodes: No pelvic adenopathy by size criteria. Bones: No aggressive osseous abnormality. Other: No significant ventral or inguinal hernia. IMPRESSION: 1.Intermediate length segment of bowel wall thickening in the ascending/transverse colon at the hepat ic flexure and nondilated fluid-filled loops of small bowel in the abdomen are suspicious for a nonsp ecific enterocolitis. 2.Colonic diverticulosis without signs of acute diverticulitis. Moderate distal colonic stool. Reviewed by: Fidencio Figueroa MD on 04/16/2023 6:45 PM PST Approved by: Fidencio Figueroa MD on 04/16/2023 6:45 PM PST Station ID: [id number]
[2023-04-16 19:04] VITALS: BP 136/70; O2SAT 98
== END 2023-04-16 18:59 | disposition home or self-care (01) ==
LOC: ED 15:18
DX: R10.32 Left lower quadrant pain (principal); K52.9 Noninfective gastroenteritis and colitis, unspecified; I10 Essential (primary) hypertension
CPT/HCPCS: 36415; 74177; 80053; 81001; 83690; 85025; 96374; 99283; 99284; Q9967; 81003; 87086

== ENCOUNTER 2023-07-01 10:45 | Outpatient (CLI) | payer MEDICARE, BC ==
[2023-07-01 18:30] LABS: ALBUMIN 4.1 g/dL (3.2-5.5); ALBUMIN/GLOBULIN RATIO 1.4 (1.0-2.2); ALKALINE PHOSPHATASE 111 IU/L (42-121); ALT ALANINE AMINOTRANSFERASE 24 IU/L (10-60); AST ASPARTATE AMINOTRANSFERASE 17 IU/L (10-42); BILIRUBIN,TOTAL 0.8 mg/dL (0.2-1.0); BUN - BLOOD UREA NITROGEN 17 mg/dL (6-20); CALCIUM 9.3 mg/dL (8.5-10.3); CARBON DIOXIDE - CO2 27 mmol/L (21-32); CHLORIDE 106 mmol/L (101-111); CHOL/HDL RATIO 3.1 (<5.0); CHOLESTEROL 56 mg/dL; GFR - MDRD 72 (>89); GLUCOSE 100 mg/dL (74-104); HDL CHOLESTEROL 18 mg/dL; LDL CHOLESTEROL,CALCULATED 19 mg/dL; LDL/HDL RATIO 1.1 (<3.6); POTASSIUM 4.5 mmol/L (3.5-4.5); SODIUM 138 mmol/L (135-145); TOTAL PROTEIN 7.1 g/dL (6.4-8.9); TRIGLYCERIDES 96 mg/dL (48-352); VLDL CHOLESTEROL 19 mg/dL
[2023-07-01 18:38] LABS: BASOPHILS % (AUTO) 0.8 %; EOSINOPHILS # (AUTO) 0.2 10^3/uL (0.0-0.7); EOSINOPHILS % (AUTO) 4.6 %; HCT - HEMATOCRIT 46.2 % (42.0-52.0); HGB - HEMOGLOBIN 14.9 g/dL (14.0-18.0); LYMPHOCYTES # (AUTO) 1.3 10^3/uL (1.5-3.5); LYMPHOCYTES % (AUTO) 25.3 %; MEAN CORPUSCULAR HEMOGLOBIN 30.1 pg (27.0-31.0); MEAN CORPUSCULAR HGB CONC 32.3 g/dL (32.0-36.0); MEAN CORPUSCULAR VOLUME 93.3 fL (80.0-94.0); MONOCYTES # (AUTO) 0.5 10^3/uL (0.0-1.0); MONOCYTES % (AUTO) 10.7 %; NEUTROPHILS % (AUTO) 58.4 %; PLT - PLATELET COUNT 185 10^3/uL (130-450); RED BLOOD COUNT 4.95 10^6/uL (4.70-6.10); RED CELL DISTRIBUTION WIDTH 13.4 % (12.0-15.0); WHITE BLOOD COUNT 5.1 x10^3/uL (4.8-10.8)
[2023-07-01 18:43] LABS: THYROID STIMULATING HORMONE 1.11 uIU/mL (0.34-5.60)
== END 2023-07-01 10:46 | disposition home or self-care (01) ==
LOC: LAB.N 10:45
PROVIDERS: ATTEND Internal Medicine
DX: I25.10 Atherosclerotic heart disease of native coronary artery without angina pectoris (principal); I48.0 Paroxysmal atrial fibrillation
CPT/HCPCS: 36415; 80053; 80061; 83721; 84443; 85025